=== PATIENT | female | born 1965 | race Caucasian/White ===

== ENCOUNTER 2024-06-14 05:30 | Day surgery (SDC) | payer MEDICARE, MEDICAID ==
[~2024-06-14] VITALS: Ht 154.9 cm; Wt 69.4 kg
[2024-06-14] MEDS ORDERED: MIDAZOLAM HCL 5 MG/5 ML VIAL ONE (06:48)
[2024-06-14] MEDS ORDERED: SIMETHICONE 40 MG/0.6 ML ML ONE (06:48)
[2024-06-14] MEDS ORDERED: MEPERIDINE 100 MG INJ. 100 MG/ML VIAL ONE (06:48)
[2024-06-14 07:14] VITALS: O2SAT 97
[2024-06-14 13:33] VITALS: BP_SYST 111; PULSE 66; RESP 21
== END 2024-06-14 09:06 | disposition home or self-care (01) ==
LOC: SGI 05:30 → SMU 05:30 → SGI 09:06
PROVIDERS: ATTEND Internal Medicine Gastroenterology
DX: K59.00 Constipation, unspecified (principal); D12.2 Benign neoplasm of ascending colon; D12.3 Benign neoplasm of transverse colon; K29.50 Unspecified chronic gastritis without bleeding; R10.13 Epigastric pain; K64.8 Other hemorrhoids; E03.9 Hypothyroidism, unspecified; E78.5 Hyperlipidemia, unspecified; Z79.890 Hormone replacement therapy; Z79.899 Other long term (current) drug therapy; Z88.0 Allergy status to penicillin
CPT/HCPCS: 45385; 43239; 87081; 36415; 88305; 88312; 88313; 99152; G0378; J2250; J2175